=== PATIENT | female | born 1965 | race Two or more races ===

== ENCOUNTER → 2017-02-20 | Outpatient (CLI) | payer OTHER ==
--- NOTE | 2017-02-25 16:20 | Diagnostic Imaging Report ---
#[id number] - MGSCRBIL #BILATERAL DIGITAL SCREENING MAMMOGRAM WITH CAD: 02/20/2017 CLINICAL: Routine screening. Comparison is made to exams dated: 01/11/2016 mammogram, 12/29/2014 mammogram and 12/16/2013 mammogram - [facility]. Current study contains 4 films. The tissue of both breasts is heterogeneously dense. This may lower the sensitivity of mammography. Current study was also evaluated with a Computer Aided Detection (CAD) system. There are benign calcifications in both breasts. No significant masses, calcifications, or other findings are seen in either breast. There has been no significant interval change. IMPRESSION: BENIGN There is no mammographic evidence of malignancy. A 1 year screening mammogram is recommended. The patient will be notified by letter of the results. Xavi beebe/nicho:02/25/2017 08:35:50 Cardiac Cath Technologist: Kierra CAMPBELL(R)(M), [facility] letter sent: Compared to Prior B9 Mammogram BI-RADS: 2 Benign
== END ==
LOC: MAMMO 14:33
PROVIDERS: ATTEND Obstetrics & Gynecology
DX: Z12.31 Encounter for screening mammogram for malignant neoplasm of breast (principal)
CPT/HCPCS: G0202

== ENCOUNTER → 2018-03-23 | Outpatient (CLI) | payer OTHER ==
--- NOTE | 2018-03-23 15:25 | Diagnostic Imaging Report ---
Exam: Bone mineral density study. History: SCREENING FOR OSTEOPOROSIS Comparison: None available. Discussion: Evaluation of the left hip and lumbar spine was performed. The study is technically adequate. The patient's fracture risk is compared to an age-matched control. The patient denies prior surgery/fracture of the spine, hips or forearm. Left hip femoral neck bone mineral density: 0.9 g/cm2, T-score is 0.4, Z-score is 1.2. Left hip total bone mineral density: 1 g/cm2, T-score is 0.8, Z-score is 1.3. Lumbar spine total bone mineral density: 1.3 g/cm2, T-score is 2.6, Z-score is 3.4. Impression: Bone mineralization by WHO Classification is normal, the fracture risk is not increased. Signed by: Avelino RoyO., M.M.M. on 03/23/2018 3:22 PM
== END ==
LOC: MAMMO 14:02
PROVIDERS: ATTEND Obstetrics & Gynecology
DX: Z12.31 Encounter for screening mammogram for malignant neoplasm of breast (principal); Z13.820 Encounter for screening for osteoporosis
CPT/HCPCS: 77067; 77080

== ENCOUNTER → 2020-03-27 | Outpatient (CLI) | payer OTHER | LOC: MAMMO 15:57 | PROVIDERS: ATTEND Internal Medicine | DX: Z12.31 Encounter for screening mammogram for malignant neoplasm of breast (principal) | CPT/HCPCS: 77067 ==